=== PATIENT | female | born 1990 | race Caucasian/White ===

== ENCOUNTER 2020-03-26 16:46 | Emergency (ER) | payer OTHER ==
[~2020-03-26] VITALS: Ht 149.9 cm; Wt 41.3 kg
[2020-03-26 16:52] VITALS: Ht 149.9 cm; Wt 41.3 kg
[2020-03-26 17:10] LABS: BASOPHIL % 0.5 % (0-2)
[2020-03-26 17:16] LABS: PLATELET COUNT 415 x10^3mcL (130-400); RED CELL DISTRIBUTION WIDTH 17.3 % (11.5-14.5)
[2020-03-26 17:29] LABS: CALCIUM 9.4 mg/dL (8.5-10.1); CARBON DIOXIDE 23.1 mmol/L (21-32); CHLORIDE SERUM 94 mmol/L (98-107); CREATININE SERUM 0.7 mg/dL (0.6-1.0); GFR1 > 60 mL/min; GLUCOSE SERUM 107 mg/dL (74-106); POTASSIUM SERUM 3.4 mmol/L (3.5-5.1); SODIUM SERUM 129 mmol/L (136-145)
[2020-03-26 17:34] LABS: ALBUMIN 4.8 g/dL (3.4-5.0); ALKALINE PHOSPHATASE 63 U/L (46-116); ALT/SGPT 17 U/L (14-59); AST/SGOT 21 U/L (15-37); BILIRUBIN TOTAL 1.2 mg/dL (0.20-1.00); LIPASE 128 IU/L (73-393); TOTAL PROTEIN, SERUM 8.2 g/dL (6.4-8.2)
[2020-03-26 20:40] VITALS: BP 128/89
== END 2020-03-26 20:40 | disposition home or self-care (01) ==
LOC: ED 16:46
PROVIDERS: Emergency Medicine
DX: N83.201 Unspecified ovarian cyst, right side (principal)
CPT/HCPCS: J1885; Q0092; Q0162

== ENCOUNTER 2020-03-28 19:17 | Emergency (ER) | payer OTHER ==
[~2020-03-28] VITALS: Ht 149.9 cm; Wt 40.4 kg
[2020-03-28 19:20] VITALS: Ht 149.9 cm; Wt 40.4 kg
[2020-03-28 19:55] LABS: BASOPHIL % 0.4 % (0-2); PLATELET COUNT 356 x10^3mcL (130-400)
[2020-03-28 19:56] LABS: RED CELL DISTRIBUTION WIDTH 17.5 % (11.5-14.5)
[2020-03-28 20:23] LABS: CALCIUM 8.9 mg/dL (8.5-10.1); CARBON DIOXIDE 22.6 mmol/L (21-32); CHLORIDE SERUM 94 mmol/L (98-107); CREATININE SERUM 0.7 mg/dL (0.6-1.0); GFR1 > 60 mL/min; GLUCOSE SERUM 89 mg/dL (74-106); POTASSIUM SERUM 3.7 mmol/L (3.5-5.1); SODIUM SERUM 130 mmol/L (136-145)
[2020-03-28 20:29] LABS: ALBUMIN 4.7 g/dL (3.4-5.0); ALKALINE PHOSPHATASE 59 U/L (46-116); ALT/SGPT 20 U/L (14-59); AMYLASE 48 U/L (25-115); AST/SGOT 17 U/L (15-37); BILIRUBIN TOTAL 0.98 mg/dL (0.20-1.00); LIPASE 144 IU/L (73-393)
[2020-03-28 22:38] VITALS: BP 127/87
== END 2020-03-28 22:38 | disposition home or self-care (01) ==
LOC: ED 19:17
PROVIDERS: Emergency Medicine
DX: N94.89 Other specified conditions associated with female genital organs and menstrual cycle (principal); Z98.890 Other specified postprocedural states
CPT/HCPCS: J1885; Q9967

== ENCOUNTER 2020-03-31 13:01 | Emergency (ER) | payer OTHER ==
[~2020-03-31] VITALS: Ht 149.9 cm; Wt 40.4 kg
[2020-03-31 13:04] VITALS: Ht 149.9 cm; Wt 40.4 kg
[2020-03-31 14:11] LABS: UA SPECIFIC GRAVITY 1.025 (1.005-1.035); microscopic required? YES; urine erythrocyte NEGATIVE (NEGATIVE)
[2020-03-31 14:15] LABS: BASOPHIL % 0.6 % (0-2); PLATELET COUNT 340 x10^3mcL (130-400)
[2020-03-31 14:16] LABS: RED CELL DISTRIBUTION WIDTH 17.5 % (11.5-14.5)
[2020-03-31 14:34] LABS: CALCIUM 8.4 mg/dL (8.5-10.1); CARBON DIOXIDE 19.5 mmol/L (21-32); CHLORIDE SERUM 97 mmol/L (98-107); CREATININE SERUM 0.5 mg/dL (0.6-1.0); GFR1 > 60 mL/min; GLUCOSE SERUM 85 mg/dL (74-106); POTASSIUM SERUM 3.1 mmol/L (3.5-5.1); SODIUM SERUM 133 mmol/L (136-145)
[2020-03-31 14:38] LABS: ALBUMIN 4.9 g/dL (3.4-5.0); ALKALINE PHOSPHATASE 62 U/L (46-116); ALT/SGPT 20 U/L (14-59); AST/SGOT 22 U/L (15-37); BILIRUBIN TOTAL 0.71 mg/dL (0.20-1.00); LIPASE 229 IU/L (73-393); TOTAL PROTEIN, SERUM 8.1 g/dL (6.4-8.2)
[2020-03-31 16:08] LABS: AMPHETAMINE QUAL UR NONE DETECTED (See below)
[2020-03-31 18:21] VITALS: BP 134/72
[2020-04-01 06:09] LABS: RAPID PLASMA REAGIN Non Reactive (Non Reactive)
== END 2020-03-31 18:21 | disposition home or self-care (01) ==
LOC: ED 13:01
PROVIDERS: Emergency Medicine
DX: R10.2 Pelvic and perineal pain (principal); E87.8 Other disorders of electrolyte and fluid balance, not elsewhere classified; F12.10 Cannabis abuse, uncomplicated; Z90.49 Acquired absence of other specified parts of digestive tract; Z98.890 Other specified postprocedural states
CPT/HCPCS: 87491; 87591; J0696; J1885; J2405; J3490; J7030; Q0092

== ENCOUNTER 2020-04-03 12:03 | Observation (INO) | payer OTHER ==
[~2020-04-03] VITALS: Ht 149.9 cm; Wt 39.0 kg
--- NOTE | 2020-04-03 13:35 | NUR ---
PATIENT ARRIVED FROM HOME, C/O ABDOMINAL PAIN AND N/V. PATIENT STATES PAIN WORSEN TODAY. PATIENT AAOX4, RESPIRATIONS E/U, PATIENT CRYING DUE TO PAIN. PATIENT GOWNED, SAFETY PRECAUTIONS IN PLACE, MSE DONE BY DR. WILKINSON. PATIENT DENIES ANY DRUG USE. CALL LIGHT WITHIN REACH.
[2020-04-03 14:34] LABS: BASOPHIL % 0.5 % (0-2); PLATELET COUNT 444 x10^3mcL (130-400); RED CELL DISTRIBUTION WIDTH 18.1 % (11.5-14.5)
[2020-04-03 14:38] LABS: ALKALINE PHOSPHATASE 63 U/L (46-116); ALT/SGPT 17 U/L (14-59); AST/SGOT 14 U/L (15-37); CALCIUM 9.8 mg/dL (8.5-10.1); CARBON DIOXIDE 16.5 mmol/L (21-32); CHLORIDE SERUM 91 mmol/L (98-107); CREATININE SERUM 0.6 mg/dL (0.6-1.0); GFR1 > 60 mL/min; GLUCOSE SERUM 104 mg/dL (74-106); LIPASE 208 IU/L (73-393); SODIUM SERUM 129 mmol/L (136-145)
[2020-04-03 14:50] LABS: ALBUMIN 5.3 g/dL (3.4-5.0); POTASSIUM SERUM 2.8 mmol/L (3.5-5.1); TOTAL PROTEIN, SERUM 9.1 g/dL (6.4-8.2)
[2020-04-03 15:40] LABS: UA SPECIFIC GRAVITY 1.025 (1.005-1.035); microscopic required? YES; urine erythrocyte NEGATIVE (NEGATIVE)
--- NOTE | 2020-04-03 15:40 | NUR ---
PATIENT SITTING IN BED ASLEEP, RESPIRATIONS E/U, CHEST RISE AND FALL, NO DISTRESS NOTED. PATIENT EASILY AROUSBLE WITH VERBAL STIMULI, BUT FALL BACK TO SLEEP. CALL LIGHT WITHIN REACH.
--- NOTE | 2020-04-03 16:03 | NUR ---
PATIENT REQUESTING TO HAVE POTASSIUM PO, INFORMED DR. WILKINSON. PER DR. WILKINSON PATIENT MUST FIRST DRINK CONTRAST AND HAVE CT DON BEFORE HAVING POTASSIUM PO. EXPLAINED THIS TO PATIENT, ENCOURAGE TO DRINK AND FINISH CONTRAST. CALL LIGHT WITHIN REACH.
--- NOTE | 2020-04-03 16:20 | NUR ---
PATIENT OFF THE FLOOR VIA GURNEY FOR CT.
--- NOTE | 2020-04-03 17:08 | NUR ---
1ST IV POTASSIUM 20 MEQ/100 ML'S MEDICATION RUNNING AT THIS TIME AT 50 MLS/HR. PLEASE SEE EMAR. PATIENT TOLERATING WELL. 2ND POTASSIUM BAG UNOPENED AT BEDSIDE.
--- NOTE | 2020-04-03 17:51 | NUR ---
REPORT GIVEN TO DREW WATSON, EXT. [id number]. ALL QUESTIONS ADDRESSED.
--- NOTE | 2020-04-03 17:56 | NUR ---
PATIENT BELONGING INCLUDE CELL PHONE, CLOTHES, AND SANDALS.
--- NOTE | 2020-04-03 18:00 | NUR ---
RECEIVED PT FROM ED VIA [employer], CAME IN DUE TO INTERMITTENT ABDOMINAL PAIN X1 MONTH AND VOMITING X1 DAY. AAOX4. DENIES HEADACHE/DIZZINESS. ABLE TO FOLLOW COMMANDS. NO SOB NOTED, LUNG SOUNDS CTA. DENIES CHEST PAIN/PRESURE, SINUS TACHYCARDIA ON THE MONITOR. HR AT 110. DENIES ABDOMINAL PAIN/NAUSEA/VOMITING. ABDOMEN IS SOFT. BOWEL SOUNDS ACTIVE. LAST BM=04/03/20. VOIDS. IV SITE PATENT AND INTACT. RECEIVED PT FROM ED W/ NS AND POTASSIUM CHLORIDE ONGOING. SIDE RAILS UPX2. CALL LIGHT ON REACH. ENDORSED TO PRIMARY NURSE ANNE FOR CONTINUITY OF CARE
--- NOTE | 2020-04-03 18:05 | NUR ---
PT ADMITTED BY RESOURCE RN DREW. OBTAINED REPORT FROM HER. PT DENIES PAIN AND SOB THIS TIME. DENIES NAUSEA AT THIS TIME. WILL GIVE PO POTASSIUM REPLACEMENT ORDERED. WILL GIVE 2nd DOSE OF K-RIDER ORDERED. SAFETY PRECAUTIONS IN PLACE. WILL ENDORSE CARE TO FPGA ENGINEER RN.
[2020-04-03 18:15] VITALS: BP 115/84
[2020-04-03 18:19] VITALS: Ht 149.9 cm; Wt 39.0 kg
--- NOTE | 2020-04-03 19:30 | NUR ---
RECEIVED REPORT FROM DAY SHIFT RN. PT RESTING WITH EYES CLOSED. AROUSABLE BY VERBAL STIMULI. ORIENTED X4. NO C/O CHEST PAIN. NO SOB ON ROOM AIR. NO C/O N/V/ABD PAIN. IV TO LAC, PATENT AND INTACT. SAFETY MEASURES IN PLACE. BED IN LOWEST POSITION. SIDE RAILS UP X2. INSTRUCTED PT TO USE THE CALL LIGHT IF ASSISTANCE IS NEEDED. CALL LIGHT WITHIN REACH.
[2020-04-03 21:10] VITALS: BP 105/69
[2020-04-04 05:44] VITALS: BP 122/81
--- NOTE | 2020-04-04 06:32 | NUR ---
PT RESTED IN LONG INTERVALS DURING SHIFT. NO SOB ON ROOM AIR. PT AMBULATED IN THE HALLWAY. PT STATES SHE IS GETTING TIRED OF BEING IN BED AND HOPING SHE CAN GO HOME SOON. EXPLAINED TO THE PT THAT THERE IS NO DISCHARGE ORDER YET AND THAT THE DOCTOR WILL CHECK THE RESULTS OF HER LAB DRAW THIS MORNING. SAFETY MEASURES MAINTAINED. ALL NEEDS ATTENDED TO. WILL ENDORSE CONTINUITY OF CARE TO ONCOMING RN.
[2020-04-04 07:13] LABS: CALCIUM 7.9 mg/dL (8.5-10.1); CARBON DIOXIDE 19.1 mmol/L (21-32); CHLORIDE SERUM 106 mmol/L (98-107); CREATININE SERUM 0.5 mg/dL (0.6-1.0); GFR1 > 60 mL/min; GLUCOSE SERUM 88 mg/dL (74-106); POTASSIUM SERUM 3.4 mmol/L (3.5-5.1); SODIUM SERUM 137 mmol/L (136-145)
[2020-04-04 07:56] LABS: BASOPHIL % 0.5 % (0-2); PLATELET COUNT 292 x10^3mcL (130-400)
[2020-04-04 07:57] LABS: RED CELL DISTRIBUTION WIDTH 18.8 % (11.5-14.5)
--- NOTE | 2020-04-04 08:00 | NUR ---
RECEIVED PT FROM PM RN, PT SLEEPING IN BED, IN NO APPARENT ACUTE DISTRESS, NO FACIAL DROOP, RESP E/U, RA, MS, NO SOB/COUGH/WHEEZING, ABD FLAT/NONTENDER, BS ACTIVE X4, PIV PATENT, DRESSING CDI, SKIN C/D/W, PALP PULSES, CAP REFILL < 2S, SEE SHIFT ASSESSMENT, AMB, CONTINENT, COMFORT MEASURE PROVIDED, WILL MONITOR
[2020-04-04 08:13] VITALS: BP 127/76
--- NOTE | 2020-04-04 09:04 | NUR ---
PT SIGNED FOR AMA, NOT WANT TO WAIT RODRIGUEZ DR OROPEZA TO SEE DUEING AM ROUND, IV REMOVED, ID BAND REMOVED, TELE REMOVED, PT IN STABLE CONDITION, CN AWARE, PT CALLED FAMILY TO P/U, PT ASSISTED TO LOBBY BY FLORY ANDRADE.
== END 2020-04-04 09:02 | disposition left against medical advice (07) ==
LOC: ED 12:03 → DU 16:53
PROVIDERS: Emergency Medicine; ADMIT Hospitalist; ATTEND Hospitalist
DX: R10.84 Generalized abdominal pain (principal); R11.10 Vomiting, unspecified; E87.6 Hypokalemia; B37.3 Candidiasis of vulva and vagina; F12.90 Cannabis use, unspecified, uncomplicated
CPT/HCPCS: G0378; J1630; J2060; J3480; J7030; Q9966; Q9967

== ENCOUNTER 2020-04-07 12:09 | Emergency (ER) | payer OTHER ==
[2020-04-07 15:44] LABS: BASOPHIL % 1.3 % (0-2); PLATELET COUNT 369 x10^3mcL (130-400)
[2020-04-07 15:49] LABS: RED CELL DISTRIBUTION WIDTH 18.5 % (11.5-14.5)
[2020-04-07 15:56] LABS: CALCIUM 9.9 mg/dL (8.5-10.1); CARBON DIOXIDE 24.5 mmol/L (21-32); CHLORIDE SERUM 95 mmol/L (98-107); CREATININE SERUM 0.8 mg/dL (0.6-1.0); GFR1 > 60 mL/min; GLUCOSE SERUM 110 mg/dL (74-106); POTASSIUM SERUM 3.4 mmol/L (3.5-5.1); SODIUM SERUM 133 mmol/L (136-145)
[2020-04-07 16:00] LABS: ALKALINE PHOSPHATASE 64 U/L (46-116); ALT/SGPT 35 U/L (14-59); AMYLASE 76 U/L (25-115); AST/SGOT 37 U/L (15-37); BILIRUBIN TOTAL 0.9 mg/dL (0.20-1.00); LIPASE 213 IU/L (73-393)
[2020-04-07 16:02] LABS: ALBUMIN 5.3 g/dL (3.4-5.0); TOTAL PROTEIN, SERUM 8.5 g/dL (6.4-8.2)
[2020-04-07 16:27] VITALS: BP 125/74
== END 2020-04-07 16:36 | disposition home or self-care (01) ==
LOC: ED 12:09
PROVIDERS: Emergency Medicine
DX: G89.29 Other chronic pain (principal); R10.9 Unspecified abdominal pain; Z98.890 Other specified postprocedural states; Z90.49 Acquired absence of other specified parts of digestive tract
CPT/HCPCS: J1630; J7030

== ENCOUNTER 2020-06-26 11:27 | Emergency (ER) | payer OTHER ==
[~2020-06-26] VITALS: Ht 149.9 cm; Wt 44.5 kg
[2020-06-26 11:39] VITALS: Ht 149.9 cm; Wt 44.5 kg
[2020-06-26 13:38] LABS: CALCIUM 9.2 mg/dL (8.5-10.1); CARBON DIOXIDE 19.9 mmol/L (21-32); CHLORIDE SERUM 104 mmol/L (98-107); CREATININE SERUM 0.6 mg/dL (0.6-1.0); GFR1 > 60 mL/min; GLUCOSE SERUM 162 mg/dL (74-106); POTASSIUM SERUM 3.4 mmol/L (3.5-5.1); SODIUM SERUM 141 mmol/L (136-145)
[2020-06-26 13:42] LABS: ALBUMIN 4.7 g/dL (3.4-5.0); ALKALINE PHOSPHATASE 58 U/L (46-116); ALT/SGPT 19 U/L (14-59); AST/SGOT 16 U/L (15-37); BILIRUBIN TOTAL 0.98 mg/dL (0.20-1.00); LIPASE 97 IU/L (73-393); TOTAL PROTEIN, SERUM 7.9 g/dL (6.4-8.2)
[2020-06-26 15:21] LABS: UA SPECIFIC GRAVITY >=1.030 (1.005-1.035); microscopic required? YES; urine erythrocyte NEGATIVE (NEGATIVE)
[2020-06-26 15:29] LABS: BASOPHIL % 0.2 % (0.2-1.3); PLATELET COUNT 305 x10^3mcL (179-408)
[2020-06-26 15:32] LABS: RED CELL DISTRIBUTION WIDTH 16.4 % (12.3-17.7)
[2020-06-26 15:37] LABS: rbc morphology (normal/abnorm) NORMAL (NORMAL)
[2020-06-26 16:06] LABS: AMPHETAMINE QUAL UR NONE DETECTED (See below)
[2020-06-26 16:30] VITALS: BP 137/86
== END 2020-06-26 16:31 | disposition home or self-care (01) ==
LOC: ED 11:27
PROVIDERS: Emergency Medicine
DX: R11.10 Vomiting, unspecified (principal); F12.90 Cannabis use, unspecified, uncomplicated; Z98.890 Other specified postprocedural states; Z90.49 Acquired absence of other specified parts of digestive tract
CPT/HCPCS: 82962; J1630; J2060; J7030

== ENCOUNTER 2020-07-28 15:44 | Emergency (ER) | payer OTHER | END 2020-07-28 16:44 | disposition left against medical advice (07) | LOC: ED 15:44 | DX: Z53.21 Procedure and treatment not carried out due to patient leaving prior to being seen by health care provider (principal) ==